=== PATIENT | female | born 1950 | race Caucasian/White ===

== ENCOUNTER → 2019-03-15 | Outpatient (CLI) | payer BC, MEDICARE ==
--- NOTE | 2019-03-15 13:55 | RAD ---
DATE: 03/15/2019. EXAM: DIGITAL DIAGNOSTIC RT, US GUID NDL PLACE/ASPI/BX. HISTORY: Right breast mass. Biopsy is requested. COMPARISON: . FINDINGS: Breast Density: SCATTERED The breast parenchyma shows scattered fibroglandular densities. Breast parenchyma level B.. The procedure along with its risks and benefits were explained to the patient. She agreed to proceed. A timeout procedure was performed. Sonographic evaluation of the right breast redemonstrates a complex cystic lesion at the 10:00 position 4 cm from the nipple. Images of the right axilla reveal no suspicious lymph nodes. The overlying skin was sterilely prepped and infiltrated with 1% lidocaine for local anesthesia. Under ultrasound guidance, 4 14-gauge core needle specimens were obtained through the lesion. This produced dark green oily material consistent with cyst contents, and small fragments of tissue. The lesion disappeared after biopsy. The specimens were submitted in formalin. A postbiopsy clip was placed under ultrasound guidance. Instrumentation was withdrawn and a sterile dressing placed. There were no immediate complications. Digital mammographic images were obtained on the right in CC and MLO projections and interpreted in combination on a dedicated workstation. These demonstrate the postbiopsy clip in correspondence with the targeted lesion. IMPRESSION: 1. Successful ultrasound-guided biopsy of a right breast mass at the 10:00 position 4 cm from the nipple.
--- NOTE | 2019-03-18 14:06 | PATHOLOGY ---
[facility] Accession Number: [id number] . 01 Material submitted: . breast - RIGHT BREAST MASS,10:00, 4CMFN. Modifiers: right, 10:00 . 01 Clinical history: . Right breast mass 1.3 cm . 02 Diagnosis: Breast mass, right, 10:00, 4 cm from nipple, core needle biopsy: - Cystic apocrine metaplasia. - Tiny microcalcification present focally. - No evidence of atypia or malignancy. (MLK/db; 03/16/2019) LBQ 03/16/2019 1243 Local . 02 Comment: This case has also been reviewed by Dr. Saw Marie who agrees with the diagnosis. (SKM:kapil; 03/16/2019) . 02 Electronically signed: . Wisam Joe MD, Pathologist NPI- [id number] . 01 Gross description: . Received in formalin labeled "Wiehe, [place], right breast," and additionally labeled on the requisition as "10:00, 4 cm FN," are multiple fragments of needle cores of yellow-mitchell fibrofatty tissue measuring approximately 0.7 x 0.5 x 0.2 cm in aggregate dimensions. The specimen is submitted in its entirety in cassettes A1-A3. The cold ischemic time is unknown. The formalin fixation time is greater than 6 hours and less than 72 hours. (TSD; 03/15/2019) TOB/TOB 03/15/2019 1944 Local . 02 Pathologist provided ICD-10: N60.81 . 02 CPT . 710305 Specimen Comment: A courtesy copy of this report has been sent to [phone], [phone] Specimen Comment: [id number] Specimen Comment: Report sent to / MONY Performed at: 01 [facility] [address], [place], [place] [id number] MD Chris Tarango MD Phone: [phone] Performed at: 02 [facility] [address], [place] [id number] MD Tres Hernandes MD Phone: [phone]
== END | disposition home or self-care (01) ==
LOC: US 08:41
PROVIDERS: ATTEND Nurse Practitioner Women's Health
DX: R92.8 Other abnormal and inconclusive findings on diagnostic imaging of breast (principal); N64.89 Other specified disorders of breast
CPT/HCPCS: 19083; 77065; 88305; C1713; 76942

== ENCOUNTER 2019-04-26 05:29 | Inpatient (IN) | payer BC, MEDICARE ==
[~2019-04-26] VITALS: Ht 160 cm; Wt 57.0 kg
--- NOTE | 2019-04-26 05:48 | PHYS DOC ---
Past Medical History Smoking: Cigarettes (BREANNE SALES MD) Adult General Chief Complaint Chief Complaint: NEURO SYMPTOMS/DEFICITS HPI HPI Patient is a 68 year old female with history of hypertension who presents with complaint to of left leg numbness. She states she went to bed around 2200 last night without problem and woke up at 4:30 this morning to go to the bathroom and had numbness and weakness of left arm and left leg and problem with walking because of weakness of left leg. Patient denies speech problem or confusion or facial droop. (LUDY BIRMINGHAM MD) Review of Systems Review of Systems Constitutional: Denies fever or chills [] Eyes: Denies change in visual acuity, redness, or eye pain [] HENT: Denies nasal congestion or sore throat [] Respiratory: Denies cough or shortness of breath [] Cardiovascular: No additional information not addressed in HPI [] GI: Denies abdominal pain, nausea, vomiting, bloody stools or diarrhea [] : Denies dysuria or hematuria [] Musculoskeletal: Denies back pain or joint pain [] Integument: Denies rash or skin lesions [] Neurologic: Denies headache, reports focal weakness , sensory changes [] Endocrine: Denies polyuria or polydipsia [] All other systems were reviewed and found to be within normal limits, except as documented in this note. (LUDY BIRMINGHAM MD) Current Medications Current Medications Current Medications Medications (Trade) Dose Ordered Sig/Marshall Start Time Stop Time Status Last Admin Dose Admin Aspirin (Children'S Aspirin) 324 mg 1X ONCE 04/26/19 06:30 04/26/19 06:32 DC 04/26/19 06:42 324 MG Clonidine HCl (Catapres) 0.1 mg 1X ONCE 04/26/19 07:30 04/26/19 07:31 Clopidogrel Bisulfate (Plavix) 300 mg 1X ONCE 04/26/19 06:30 04/26/19 06:32 DC 04/26/19 06:41 300 MG Info (CONTRAST GIVEN -- Rx MONITORING) 1 each PRN DAILY PRN 04/26/19 06:15 04/28/19 06:14 Iohexol (Omnipaque 300 Mg/ml) 75 ml 1X ONCE 04/26/19 06:30 04/26/19 06:32 DC 04/26/19 06:56 75 ML (BREANNE SALES MD) Allergies Allergies Allergies Coded Allergies Type Severity Reaction Last Updated Verified Sulfa (Sulfonamide Antibiotics) Allergy Severe 04/26/19 Yes Penicillins Allergy Intermediate 04/26/19 Yes (BREANNE SALES MD) Physical Exam Physical Exam Constitutional: Well developed, well nourished, mild distress, non-toxic appearance. [] HENT: Normocephalic, atraumatic. Eyes: PERRLA, EOMI, conjunctiva normal, no discharge. [] Neck: Normal range of motion, no tenderness, supple, no stridor. [] Cardiovascular:Heart rate regular rhythm, no murmur [] Lungs & Thorax: Bilateral breath sounds clear to auscultation [] Abdomen: Bowel sounds normal, soft, no tenderness, no masses, no pulsatile masses. [] Skin: Warm, dry, no erythema, no rash. [] Back: No tenderness, no CVA tenderness. [] Extremities: No tenderness, no cyanosis, no clubbing, ROM intact, no edema. [] Neurologic: Alert and oriented X 3, left lower extremity weakness. Psychologic: Affect normal, judgement normal, mood normal. [] (LUDY BIRMINGHAM MD) Current Patient Data Vital Signs Vital Signs Date Time Temp Pulse Resp B/P (MAP) Pulse Ox O2 Delivery O2 Flow Rate FiO2 04/26/19 06:54 68 221/76 (124) Room Air 04/26/19 05:43 98 04/26/19 05:41 98.7 20 98.7 (BREANNE SALES MD) Lab Values Laboratory Tests Test 04/26/19 05:44 04/26/19 05:47 White Blood Count 9.7 x10^3/uL (4.0-11.0) Red Blood Count 5.26 x10^6/uL (3.50-5.40) Hemoglobin 14.8 g/dL (12.0-15.5) Hematocrit 45.3 % (36.0-47.0) Mean Corpuscular Volume 86 fL (79-100) Mean Corpuscular Hemoglobin 28 pg (25-35) Mean Corpuscular Hemoglobin Concent 33 g/dL (31-37) Red Cell Distribution Width 13.9 % (11.5-14.5) Platelet Count 361 x10^3/uL (140-400) Prothrombin Time 11.6 SEC (11.7-14.0) L Prothrombin Time INR 0.9 (0.8-1.1) Activated Partial Thromboplast Time 27 SEC (24-38) Sodium Level 142 mmol/L (136-145) Potassium Level 4.4 mmol/L (3.5-5.1) Chloride Level 106 mmol/L (98-107) Carbon Dioxide Level 27 mmol/L (21-32) Anion Gap 9 (6-14) Blood Urea Nitrogen 27 mg/dL (7-20) H Creatinine 1.1 mg/dL (0.6-1.0) H Estimated GFR (Cockcroft-Gault) 49.7 Glucose Level 109 mg/dL (70-99) H Calcium Level 9.8 mg/dL (8.5-10.1) Glucose (Fingerstick) 95 mg/dL (70-99) Laboratory Tests 04/26/19 05:44 Laboratory Tests 04/26/19 05:44 (BREANNE SALSE MD) EKG EKG [] (LUDY BIRMINGHAM MD) EKG Normal sinus rhythm a rate of 72 beats for minute, leftward axis, normal intervals. There are no acute ischemic ST/T changes. (BREANNE SALES MD) Radiology/Procedures Radiology/Procedures [] (LUDY BIRMINGHAM MD) Radiology/Procedures PROCEDURE: CT ANGIOGRAPHY HEAD AND NECK CTA head and CTA neck with contrast History: Left-sided weakness Technique: Axial helical images were obtained of the head and neck after the intravenous administration of 60 mL of Omni 300 IV contrast. Multiplanar reconstruction was performed on an independent work station including MIP imaging and 3D angiographic imaging. Comparison: none CTA head with contrast. Findings: Brain: The mitchell and white matter appears symmetrical. There is no mass effect, extra-axial fluid collections or hydrocephalus. There is no gross bleed. Distal carotid arteries: Deliverer Outside patient intercavernous portions of the internal carotid arteries with less than 50 percent stenosis. Vertebral basilar system normal Major cerebral arteries: normal Impression: no acute findings end impression CTA neck with contrast: Findings: Aortic arch and origin of great vessels: normal Common carotid arteries: Right: normal Left: normal Internal carotid arteries: Right: There is calcification at the level of bulb with less than 50 percent stenosis of the origin of the right internal carotid artery. Left: normal Vertebral basilar system normal There is patchy opacity in the apices the lungs. Impression: No significant stenosis. Patchy opacity in the apices of lungs is nonspecific and could be scar. TB is possible. End impression PROCEDURE: CT CODE STROKE HEAD WO CT Head W/O Contrast: History: Left-sided weakness and numbness Comparison: none Axial images were obtained without contrast. There is moderate diffuse atrophy. There is no mass effect, extraaxial fluid collections or hydrocephalus. There is no gross bleed. Mild, patchy periventricular and subcortical white matter hypoattenuation is seen. There is no focal loss of mitchell-white matter distinction to suggest acute ischemia, i.e. stroke. Impression: No acute findings. (BREANNE SALES MD) Course & Med Decision Making Course & Med Decision Making Pertinent Labs and Imaging studies pending. Evaluation of patient in ER showed 68-year-old female patient with history of hypertension presented complaining of left upper and lower extremity numbness and weakness since she woke up at 0420. CT head and labs is pending. Sign out given to for further evaluation and final disposition. Discussed current findings and plan with patient and family, who acknowledge understanding and agreement. (LUDY BIRMINGHAM MD) Course & Med Decision Making 6:10 AM: Patient care was assumed at 6 AM shift change. Patient awakened around 420, to use the restroom and noticed some problems with the left side of her body. She is complaining of paresthesias along the entire left side of her body, from her left face towards her left leg, including her left arm. She reports some weakness with her left leg although she is able to ambulate. She denies any pain or headache, although she states she has been having some lower right back pain since awakening this morning. She denies any vision changes or speech difficulties. Noncontrast CT of her head is negative. She states she has a history of being told that she has high blood pressure in the past, but she usually states that her blood pressure goes down when she leaves the doctor's office, and she has not been treated for hypertension only 1 physician she had recommended she be on blood pressure medication. On my assessment, the patient has an NIH stroke scale score of 2, with some mildly decreased pinprick sensation on the left side of her body relative to the right, and some very mild weakness/drift, of her left leg. There is also some decreased fluidity on [id number] and heel martinez testing on the left relative to the right but this does not represent true ataxia. A CT angiogram will be obtained. I suspect the patient has had a small ischemic stroke. She is not a TPA candidate, due to her "last known normal" time being before going to bed last night before mid night. 7:15 AM:The patient's condition remains stable. I spoke with the hospitalist, who accepted the patient to the hospital for further evaluation and treatment. Neurology tooth cutter contact wheel has been paged as well. CRITICAL CARE TIME: 45 Minutes, excluding any procedures and care of other patients. (BREANNE SALES MD) Dragon Disclaimer Dragon Disclaimer This electronic medical record was generated, in whole or in part, using a voice recognition dictation system. (LUDY BIRMINGHAM MD) Departure Departure Impression: Primary Impression: Acute ischemic stroke Disposition: ADMITTED INPATIENT Admitting Physician: HIMLibia (BREANNE SALES MD) Condition: STABLE Referrals: NO PCP (PCP) NIHSS Stroke Scale NIH Stroke Scale: NIH Stroke Scale Response (Comments) Value Level of Consciousness: 0 Alert/Responsive 0 LOC Questions: 0 Answers both correctly 0 Best Gaze: 0 Normal 0 Visual: 0 No visual loss 0 Facial Palsy: 0 Normal, symmetrical 0 Motor - Left Arm 0 No drift 0 Motor - Right Arm 0 No drift 0 Motor - Left Leg 1 Drift but can hold 1 Motor: Right Leg 0 No drift 0 Total 1 LUDY BIRMINGHAM MD Apr 26, 2019 05:48 BREANNE SALES MD Apr 26, 2019 06:18
[2019-04-26 05:51] LABS: HEMATOCRIT 45.3 % (36.0-47.0); HEMOGLOBIN 14.8 g/dL (12.0-15.5); RED BLOOD COUNT 5.26 x10^6/uL (3.50-5.40); RED CELL DISTRIBUTION WIDTH 13.9 % (11.5-14.5); WHITE BLOOD COUNT 9.7 x10^3/uL (4.0-11.0)
--- NOTE | 2019-04-26 06:02 | RAD ---
CT Head W/O Contrast: History: Left-sided weakness and numbness Comparison: none Axial images were obtained without contrast. There is moderate diffuse atrophy. There is no mass effect, extraaxial fluid collections or hydrocephalus. There is no gross bleed. Mild, patchy periventricular and subcortical white matter hypoattenuation is seen. There is no focal loss of mitchell-white matter distinction to suggest acute ischemia, i.e. stroke. Impression: No acute findings. End impression These results were called to the Emergency Department and verified by read back at the time of dictation. PQRS Compliance Statement: One or more of the following individualized dose reduction techniques were utilized for this examination: 1. Automated exposure control 2. Adjustment of the mA and/or kV according to patient size 3. Use of iterative reconstruction technique Electronically signed by: Shyam Daniel III, MD (04/26/2019 5:59 AM) [id number]
[2019-04-26 06:05] LABS: CALCIUM 9.8 mg/dL (8.5-10.1); CREATININE 1.1 mg/dL (0.6-1.0); GFR 49.7; POTASSIUM 4.4 mmol/L (3.5-5.1)
[2019-04-26 06:08] LABS: PROTHROMBIN TIME PATIENT 11.6 SEC (11.7-14.0)
[2019-04-26] MEDS ORDERED: CONTRAST GIVEN. MC PRN (06:15)
[2019-04-26] MEDS ORDERED: ASPIRIN CHEWABLE 81 MG TABLET. PO ONE (06:30)
[2019-04-26] MEDS ORDERED: IOHEXOL 300 MG/ML 100ML VIAL. IV ONE (06:30)
[2019-04-26] MEDS ORDERED: CLOPIDOGREL BISULFATE 75 MG TABLET PO ONE (06:30)
--- NOTE | 2019-04-26 07:09 | RAD ---
CTA head and CTA neck with contrast History: Left-sided weakness Technique: Axial helical images were obtained of the head and neck after the intravenous administration of 60 mL of Omni 300 IV contrast. Multiplanar reconstruction was performed on an independent work station including MIP imaging and 3D angiographic imaging. Comparison: none CTA head with contrast. Findings: Brain: The mitchell and white matter appears symmetrical. There is no mass effect, extra-axial fluid collections or hydrocephalus. There is no gross bleed. 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 Vertebral basilar system normal Major cerebral arteries: normal Impression: no acute findings end impression CTA neck with contrast: Findings: Aortic arch and origin of great vessels: normal Common carotid arteries: Right: normal Left: normal Internal carotid arteries: Right: There is calcification at the level of bulb with less than 50 percent stenosis of the origin of the right internal carotid artery. Left: normal Vertebral basilar system normal There is patchy opacity in the apices the lungs. Impression: No significant stenosis. Patchy opacity in the apices of lungs is nonspecific and could be scar. TB is possible. End impression These results were called to Dr. SALES and verified by read back at the time of dictation. PQRS Compliance Statement - Stenosis calculations for CT, MR and conventional angiography are based upon measurement of the distal ICA diameter in accordance with the NASCET methodology. Stenosis calculations for carotid ultrasound studies are derived from validated velocity criteria which are known to correlate with the NASCET methodology. PQRS Compliance Statement: One or more of the following individualized dose reduction techniques were utilized for this examination: 1. Automated exposure control 2. Adjustment of the mA and/or kV according to patient size 3. Use of iterative reconstruction technique Electronically signed by: Shyam Daniel III, MD (04/26/2019 7:06 AM) [id number]
--- NOTE | 2019-04-26 07:25 | PDOC1 ---
History and Physical Date of Admission Date of Admission DATE: 04/26/19 TIME: 07:25 Identification/Chief Complaint Chief Complaint Left sided numbness Source Source: Patient History of Present Illness History of Present Illness Ms Wang is a 68yo F w/ PMHx HTN, occasional smoker 2-3 cigarettes per day, not on meds presented complaining of left upper and lower extremity numbness and weakness since she woke up at 0420. Seen in ED at 610 At 420 she awakened to use the restroom and noticed numbness on the left side of her body. She had some weakness with her left leg as well. She denies any pain or headache, although she states she has been having some lower right back pain recently. She notes she had a chiropractic adjustment for her neck and back last week. She denies any vision changes or speech difficulties and does not note a facial droop. Noncontrast CT of her head is negative. She has previously tried taking aspirin, states it "tears up" her stomach. NIH stroke scale score of 2, with some mildly decreased pinprick sensation on the left side of her body and asymmetric weakness in left leg. In ED noted outside the tPA window based on last known normal being prior to falling asleep on 04/25/2019. CT angiography negative for intracranial large vessel thrombosis. Admitted for further treatment. Past Medical History Cardiovascular: HTN Pulmonary: No pertinent hx GI: No pertinent hx Heme/Onc: No pertinent hx Hepatobiliary: No pertinent hx Psych: No pertinent hx Musculoskeletal: low back pain Rheumatologic: No pertinent hx Infectious disease: No pertinent hx ENT: No pertinent hx Renal/: No pertinent hx Endocrine: No pertinent hx Dermatology: No pertinent hx Past Surgical History Past Surgical History: No pertinent history Family History Family History: Coronary Artery Disease, High Cholestrol, Hypertension Family History: Parent (Mother - multiple issues, cardiac, HTN) Social History Smoke: <1 pack per day (2-3 cigs per day) ALCOHOL: occassional (2 beers daily) Drugs: None Current Problem List Problem List Problems Medical Problems: (1) Acute focal neurological deficit Status: Acute Current Medications Current Medications Current Medications Aspirin (Children'S Aspirin) 324 mg 1X ONCE PO Last administered on 04/26/19at 06:42; Start 04/26/19 at 06:30; Stop 04/26/19 at 06:32; Status DC Clopidogrel Bisulfate (Plavix) 300 mg 1X ONCE PO Last administered on 04/26/19at 06:41; Start 04/26/19 at 06:30; Stop 04/26/19 at 06:32; Status DC Iohexol (Omnipaque 300 Mg/ml) 75 ml 1X ONCE IV Last administered on 04/26/19at 06:56; Start 04/26/19 at 06:30; Stop 04/26/19 at 06:32; Status DC Info (CONTRAST GIVEN -- Rx MONITORING) 1 each PRN DAILY PRN MC SEE COMMENTS; Start 04/26/19 at 06:15; Stop 04/28/19 at 06:14 Clonidine HCl (Catapres) 0.1 mg 1X ONCE PO ; Start 04/26/19 at 07:30; Stop 04/26/19 at 07:31 Allergies Allergies: Coded Allergies: Sulfa (Sulfonamide Antibiotics) (Verified Allergy, Severe, 04/26/19) Penicillins (Verified Allergy, Intermediate, 04/26/19) ROS General: No: Chills, Night Sweats, Fatigue, Malaise, Appetite, Other PSYCHOLOGICAL ROS: No: Anxiety, Behavioral Disorder, Concentration difficultie, Decreased libido, Depression, Disorientation, Hallucinations, Hostility, Irritablity, Memory difficulties, Mood Swings, Obsessive thoughts, Physical abuse, Sexual abuse, Sleep disturbances, Suicidal ideation, Other Eyes: No Blurry vision, No Decreased vision, No Double vision, No Dry eyes, No Excessive tearing, No Eye Pain, No Itchy Eyes, No Loss of vision, No Photophobia, No Scotomata, No Uses contacts, No Uses glasses, No Other HEENT: No: Heacaches, Visual Changes, Hearing change, Nasal congestion, Nasal discharge, Oral lesions, Sinus pain, Sore Throat, Epistaxis, Sneezing, Snoring, Tinnitus, Vertigo, Vocal changes, Other ALLERGY AND IMMUNOLOGY: No: Hives, Insect Bite Sensitivity, Itchy/Watery Eyes, Nasal Congestion, Post Nasal Drip, Seasonal Allergies, Other ENDOCRINE: No: Breast Changes, Galactorrhea, Hair Pattern Changes, Hot Flashes, Malaise/lethargy, Mood Swings, Palpitations, Polydipsia/polyuria, Skin Changes, Temperature Intolerance, Unexpected Weight Changes, Other Breast: No New/Changing Breast Lumps, No Nipple changes, No Nipple discharge, No Other Respiratory: No: Cough, Hemoptysis, Orthopnea, Pleuritic Pain, Shortness of breath, SOB with excertion, Sputum Changes, Stridor, Tachypnea, Wheezing, Other Cardiovascular: No Chest Pain, No Palpitations, No Orthopnea, No Paroxysmal Noc. Dyspnea, No Edema, No Lt Headedness, No Other Gastrointestinal: No Nausea, No Vomiting, No Abdominal Pain, No Diarrhea, No Constipation, No Melena, No Hematochezia, No Other Genitourinary: No Dysuria, No Frequency, No Incontinence, No Hematuria, No Retention, No Discharge, No Urgency, No Pain, No Flank Pain, No Other, No , No , No , No , No , No , No Musculoskeletal: Yes Gait Disturbance; No Joint Pain, No Joint Stiffness, No Joint Swelling, No Muscle Pain, No Muscular Weakness, No Pain In:, No Swelling In:, No Other Neurological: Yes Numbness/Tingling; No Behavorial Changes, No Bowel/Bladder ControlChng, No Confusion, No Dizziness, No Gait Disturbance, No Headaches, No Impaired Coord/balance, No Memory Loss, No Seizures, No Speech Problems, No Tremors, No Visual Changes, No Weakness, No Other Skin: No Dry Skin, No Eczema, No Hair Changes, No Lumps, No Mole Changes, No Mottling, No Nail Changes, No Pruritus, No Rash, No Skin Lesion Changes, No Other, No Acne Physical Exam General: Alert, Oriented X3, Cooperative, No acute distress HEENT: Atraumatic, PERRLA, EOMI, Mucous membr. moist/pink Lungs: Clear to auscultation, Normal air movement Heart: S1S2, RRR, no thrills, no rubs, no gallops, no murmurs Abdomen: Normal bowel sounds, Soft, No tenderness, No hepatosplenomegaly, No masses Rectal Exam: not examined Extremities: No clubbing, No cyanosis, No edema, Normal pulses, No tenderness/swelling Skin: No rashes, No breakdown, No significant lesion Neuro: Normal gait, Normal speech, Strength at 5/5 X4 ext, Normal tone, Sensation intact, Cranial nerves 3-12 NL, Reflexes 2+ Psych/Mental Status: Mental status NL, Mood NL Vitals Vitals Vital Signs Date Time Temp Pulse Resp B/P (MAP) Pulse Ox O2 Delivery O2 Flow Rate FiO2 04/26/19 06:54 68 221/76 (124) Room Air 04/26/19 05:43 98 04/26/19 05:41 98.7 20 98.7 Labs Labs Laboratory Tests Test 04/26/19 05:44 04/26/19 05:47 White Blood Count 9.7 x10^3/uL (4.0-11.0) Red Blood Count 5.26 x10^6/uL (3.50-5.40) Hemoglobin 14.8 g/dL (12.0-15.5) Hematocrit 45.3 % (36.0-47.0) Mean Corpuscular Volume 86 fL (79-100) Mean Corpuscular Hemoglobin 28 pg (25-35) Mean Corpuscular Hemoglobin Concent 33 g/dL (31-37) Red Cell Distribution Width 13.9 % (11.5-14.5) Platelet Count 361 x10^3/uL (140-400) Prothrombin Time 11.6 SEC (11.7-14.0) Prothromb Time International Ratio 0.9 (0.8-1.1) Activated Partial Thromboplast Time 27 SEC (24-38) Sodium Level 142 mmol/L (136-145) Potassium Level 4.4 mmol/L (3.5-5.1) Chloride Level 106 mmol/L (98-107) Carbon Dioxide Level 27 mmol/L (21-32) Anion Gap 9 (6-14) Blood Urea Nitrogen 27 mg/dL (7-20) Creatinine 1.1 mg/dL (0.6-1.0) Estimated GFR (Cockcroft-Gault) 49.7 Glucose Level 109 mg/dL (70-99) Calcium Level 9.8 mg/dL (8.5-10.1) Glucose (Fingerstick) 95 mg/dL (70-99) Laboratory Tests Test 04/26/19 05:44 04/26/19 05:47 White Blood Count 9.7 x10^3/uL (4.0-11.0) Red Blood Count 5.26 x10^6/uL (3.50-5.40) Hemoglobin 14.8 g/dL (12.0-15.5) Hematocrit 45.3 % (36.0-47.0) Mean Corpuscular Volume 86 fL (79-100) Mean Corpuscular Hemoglobin 28 pg (25-35) Mean Corpuscular Hemoglobin Concent 33 g/dL (31-37) Red Cell Distribution Width 13.9 % (11.5-14.5) Platelet Count 361 x10^3/uL (140-400) Prothrombin Time 11.6 SEC (11.7-14.0) Prothromb Time International Ratio 0.9 (0.8-1.1) Activated Partial Thromboplast Time 27 SEC (24-38) Sodium Level 142 mmol/L (136-145) Potassium Level 4.4 mmol/L (3.5-5.1) Chloride Level 106 mmol/L (98-107) Carbon Dioxide Level 27 mmol/L (21-32) Anion Gap 9 (6-14) Blood Urea Nitrogen 27 mg/dL (7-20) Creatinine 1.1 mg/dL (0.6-1.0) Estimated GFR (Cockcroft-Gault) 49.7 Glucose Level 109 mg/dL (70-99) Calcium Level 9.8 mg/dL (8.5-10.1) Glucose (Fingerstick) 95 mg/dL (70-99) Images Images CTA head and CTA neck with contrast Brain: The mitchell and white matter appears symmetrical. There is no mass effect, extra-axial fluid collections or hydrocephalus. There is no gross bleed. Distal carotid arteries: Senior Market Intelligence Consultant patient intercavernous portions of the internal carotid arteries with less than 50 percent stenosis. Vertebral basilar system normal Major cerebral arteries: normal Impression: no acute findings CTA neck with contrast: Aortic arch and origin of great vessels: normal Common carotid arteries: Right: normal Left: normal Internal carotid arteries: Right: There is calcification at the level of bulb with less than 50 percent stenosis of the origin of the right internal carotid artery. Left: normal Vertebral basilar system normal There is patchy opacity in the apices the lungs. Impression: No significant stenosis. Patchy opacity in the apices of lungs is nonspecific and could be scar. TB is possible. End impression PROCEDURE: CT CODE STROKE HEAD WO CT Head W/O Contrast: History: Left-sided weakness and numbness Comparison: none Axial images were obtained without contrast. There is moderate diffuse atrophy. There is no mass effect, extraaxial fluid collections or hydrocephalus. There is no gross bleed. Mild, patchy periventricular and subcortical white matter hypoattenuation is seen. There is no focal loss of mitchell-white matter distinction to suggest acute ischemia, i.e. stroke. Impression: No acute findings. VTE Prophylaxis Ordered VTE Prophylaxis Devices: Yes VTE Pharmacological Prophylaxi: No Assessment/Plan Assessment/Plan A/P: Left sided weakness and left sided numbness - consistent with CVA symptoms, 2/2 hypertensive encephalopathy. Symptoms resolved. Neurology consulted Elevated blood pressure not on antihypertensives - advised she should consider a mbulatory blood pressure monitoring Smoker - Counseled regarding smoking cessation Dyspepsia - aspirin enteric coated preferred. Counseled regarding reducing alcohol intake and smoking to help with this. FEN - General diet PPX - ambulatory FULL CODE Dispo - inpatient for CVA symptoms. will get MRI, echo, telemetry, PT/OT/FRONT SIGHT ATTACHER SONI ADAMES MD Apr 26, 2019 07:25
[2019-04-26] MEDS ORDERED: cloNIDine HCL 0.1 MG TABLET PO ONE (07:30)
--- NOTE | 2019-04-26 07:37 | RAD ---
EXAM: CHEST 1 VIEW History: Abnormal CT findings COMPARISON: None available. TECHNIQUE: Single portable radiograph of the chest FINDINGS: The cardiac silhouette is unremarkable. Faint opacities in the bilateral apical lungs.The costophrenic sulci are clear and well demarcated. IMPRESSION: Faint opacities identified in the bilateral apical lungs could be atelectasis or scarring changes. Electronically signed by: Benny Marte MD (04/26/2019 7:34 AM) [facility] [place]
--- NOTE | 2019-04-26 08:59 | EKG ---
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
[2019-04-26] MEDS ORDERED: ACETAMINOPHEN 325 MG TABLET. PO PRN (14:00)
[2019-04-26] MEDS ORDERED: ACETAMINOPHEN 650 MG SUPP.RECT. PR PRN (14:00)
[2019-04-26] MEDS ORDERED: ASPIRIN RECTAL 300 MG SUPP. PR PRN (14:00)
[2019-04-26 14:09] VITALS: BP 123/100
[2019-04-26] MEDS: ASPIRIN ENTERIC COATED 325 MG TABLET.DR. PO SCH (15:00)
--- NOTE | 2019-04-26 16:05 | CARD ---
MR#: [id number] Date of Study: 04/26/2019 Ordering Physician: MYRNA DAVE, Referring Physician: MYRNA DAVE, Tech: Courtney Maya APPROVED REPORT EXAM: Two-dimensional and M-mode echocardiogram with Doppler and color Doppler. Other Information Quality : FairHR: 69bpm INDICATION CVA/TIA RISK FACTORS Hypertension Smoking 2D DIMENSIONS RVDd2.5 (2.9-3.5cm)Left Atrium(2D)2.8 (1.6-4.0cm) IVSd1.2 (0.7-1.1cm)Aortic Root(2D)2.5 (2.0-3.7cm) LVDd3.9 (3.9-5.9cm)LVOT Diameter1.7 (1.8-2.4cm) PWd1.0 (0.7-1.1cm)LVDs1.9 (2.5-4.0cm) FS (%) 51.4 %SV56.4 ml Aortic Valve AoV Peak John.146.5cm/sAoV VTI29.7cm AO Peak GR.8.6mmHgLVOT Peak John.103.6cm/s LVOT VTI 22.57cmAO Mean GR.5mmHg GOVIND (VMAX)1.44pq1MFG (VTI)1.79cm2 Mitral Valve MV E Egbqdcqj76.4cm/sMV DECEL [id number] MV A Nnsoudng62.3cm/sMV E Mean Gr.1mmHg MV [id number]/A Ratio0.8 MVA (PHT)2.32cm2 TDI E/Lateral E'11.2E/Medial E'8.8 Pulmonary Valve PV Peak Jjvzxvtk07.0cm/sPV Peak Grad.3mmHg Tricuspid Valve TR P. Diqegxak914eq/sTR Peak Gr.25mmHg Pulmonary Vein S1 Wqsdiubf79.9cm/sD2 Usdowvop51.2cm/s PVa [id number] LEFT VENTRICLE The left ventricle is normal size. There is borderline concentric left ventricular hypertrophy. The l eft ventricular systolic function is normal and the ejection fraction is within normal range. The Eje ction Fraction is 60-65%. There is normal LV segmental wall motion. Transmitral Doppler flow pattern is Grade I-abnormal relaxation pattern. RIGHT VENTRICLE The right ventricle is normal size. There is normal right ventricular wall thickness. The right ventr icular systolic function is normal. ATRIA The left atrium size is normal. The right atrium size is normal. The interatrial septum is intact wit h no evidence for an atrial septal defect or patent foramen ovale as noted on 2-D or Doppler imaging. AORTIC VALVE The aortic valve is normal in structure and function. Doppler and Color Flow revealed trace aortic re gurgitation. There is no significant aortic valvular stenosis. MITRAL VALVE The mitral valve is normal in structure and function. There is no evidence of mitral valve prolapse. There is no mitral valve stenosis. Doppler and Color Flow revealed no mitral valve regurgitation note d. TRICUSPID VALVE The tricuspid valve is not well visualized. Doppler and Color Flow revealed no tricuspid valve regurg itation noted. There is no tricuspid valve stenosis. PULMONIC VALVE The pulmonic valve is not well visualized. Doppler and Color Flow revealed no pulmonic valvular regur gitation. GREAT VESSELS The aortic root is normal in size. The IVC is normal in size and collapses >50% with inspiration. PERICARDIAL EFFUSION There is no evidence of significant pericardial effusion. Critical Notification Critical Value: No <Conclusion> The left ventricle is normal size. The left ventricular systolic function is normal and the ejection fraction is within normal range. The Ejection Fraction is 60-65%. There is borderline concentric left ventricular hypertrophy. Doppler and Color Flow revealed trace aortic regurgitation. There is no significant aortic valvular stenosis. Doppler and Color Flow revealed no mitral valve regurgitation noted. Doppler and Color Flow revealed no tricuspid valve regurgitation noted. Signed by : Rick Koroma MD Electronically Approved : 04/26/2019 16:05:05
--- NOTE | 2019-04-26 16:37 | RAD ---
BRAIN W/O CONTRAST History: CVA Technique: Multiplanar, multi sequential MR imaging was performed of the brain without contrast. Comparison: Head CT April 26, 2019 Findings: No acute infarct. No intracranial hemorrhage. No mass effect. No hydrocephalus. Chronic right basal ganglia lacunar infarct. Foci of T2/FLAIR hyperintensity within the hemispheric white matter, most often due to chronic microvascular ischemia. Imaged orbits are unremarkable. Imaged paranasal sinuses and mastoid air cells are clear. Impression: 1. No acute intracranial abnormality. 2. Chronic right basal ganglia lacunar infarct. 3. Moderate sequela of chronic microvascular ischemia. Electronically signed by: Drake Pepper DO (04/26/2019 4:34 PM) [id number]
--- NOTE | 2019-04-26 16:50 | PDOC2 ---
NEUROLOGY CONSULT Date of Admission Date of Admission DATE: 04/26/19 TIME: 16:49 Reason for Consult Reason for Consult: Stroke symptoms Referring Physician Referring Physician: Dr. Saleh Source Source: Caregiver, Chart review, Patient History of Present Illness History of Present Illness The patient is a 68-year-old right-handed female who woke up this morning with left-sided weakness and numbness. Last known normal was 10 PM, she was therefore deemed to be a poor candidate for alteplase. Her blood pressure was markedly elevated and indeed her symptoms have resolved with its treatment. She has not seen a doctor in several years. There is no headache, diplopia, dysphagia, dysarthria, cognitive change, or any prior history of stroke, seizure, or head injury. Past Medical History Cardiovascular: HTN GI: GERD (markedly worse with aspirin) Past Surgical History Past Surgical History: No pertinent history Family History Family History: No pertinent hx (mother of multiple causes, father of unknown cause) Social History Social History , 2 cigarettes a day, 2 beers a day Current Medications Current Medications Current Medications Aspirin (Children'S Aspirin) 324 mg 1X ONCE PO Last administered on 04/26/19at 06:42; Start 04/26/19 at 06:30; Stop 04/26/19 at 06:32; Status DC Clopidogrel Bisulfate (Plavix) 300 mg 1X ONCE PO Last administered on 04/26/19at 06:41; Start 04/26/19 at 06:30; Stop 04/26/19 at 06:32; Status DC Iohexol (Omnipaque 300 Mg/ml) 75 ml 1X ONCE IV Last administered on 04/26/19at 06:56; Start 04/26/19 at 06:30; Stop 04/26/19 at 06:32; Status DC Info (CONTRAST GIVEN -- Rx MONITORING) 1 each PRN DAILY PRN MC SEE COMMENTS; Start 04/26/19 at 06:15; Stop 04/28/19 at 06:14 Clonidine HCl (Catapres) 0.1 mg 1X ONCE PO Last administered on 04/26/19at 08:03; Start 04/26/19 at 07:30; Stop 04/26/19 at 07:31; Status DC Acetaminophen (Tylenol) 650 mg PRN Q6HRS PRN PO TEMP > 100.4F; Start 04/26/19 at 14:00 Acetaminophen (Tylenol Supp) [address] TEMP > 100.4F; Start 04/26/19 at 14:00 Aspirin (Ecotrin) 325 mg DAILYWBKFT PO ; Start 04/26/19 at 15:00 Aspirin (Aspirin Rectal Supp) [address] IF UNABLE TO TAKE PO; Start 04/26/19 at 14:00 Atorvastatin Calcium (Lipitor) 40 mg QHS PO ; Start 04/26/19 at 21:00 Allergies Allergies: Coded Allergies: Sulfa (Sulfonamide Antibiotics) (Verified Allergy, Severe, 04/26/19) Penicillins (Verified Allergy, Intermediate, 04/26/19) ROS Review of System Negative for fever, chills, weight loss, shortness of breath, chest pain, hematochezia, melena, and dysuria. Positive for reflux symptoms. Full 14-point review of systems is negative. Physical Exam Physical Examination General: Well-developed, well-nourished white female in no acute distress HEENT: Normocephalic andatraumatic. Temporal arteriespulsatile and nontender. Neck: Supple without bruit, no meningismus Musculoskeletal: Stability:see neurologic. Gait exam:see neurologic. Tone:see ne urologic.Strength:see neurologic. Neurological: Mental Status:intact, orientation, memory, attention span/concentration, asim guage, fund of knowledge normal. Cranial Nerves:Pupils equal and reactive to light, extraocular movements areintact, visual aragon are full to confrontation. Facial sensation is normal. There is no facial asymmetry. Vestibulo-ocular reflex is intact. Palate elevates and tongue protrudes in midline. All other cranial related problems are negative except as mentioned before.Reflexes:2+ and symmetric with flexor plantar responses. Motor:5/5 strength with normal tone and bulk. Coordination:Finger-nose finger and [id number] testing are normal. Rapid alternating movements and fine finger movements are intact. Gait:Normal, including tandem. Sensory:Normal pinprick, vibration, light touch, proprioception. Vitals VITALS Vital Signs Date Time Temp Pulse Resp B/P (MAP) Pulse Ox O2 Delivery O2 Flow Rate FiO2 04/26/19 14:25 Room Air 04/26/19 14:09 97.8 66 18 123/100 (108) 98 97.8 Labs Labs Laboratory Tests Test 04/26/19 05:44 04/26/19 05:47 White Blood Count 9.7 x10^3/uL (4.0-11.0) Red Blood Count 5.26 x10^6/uL (3.50-5.40) Hemoglobin 14.8 g/dL (12.0-15.5) Hematocrit 45.3 % (36.0-47.0) Mean Corpuscular Volume 86 fL (79-100) Mean Corpuscular Hemoglobin 28 pg (25-35) Mean Corpuscular Hemoglobin Concent 33 g/dL (31-37) Red Cell Distribution Width 13.9 % (11.5-14.5) Platelet Count 361 x10^3/uL (140-400) Prothrombin Time 11.6 SEC (11.7-14.0) Prothromb Time International Ratio 0.9 (0.8-1.1) Activated Partial Thromboplast Time 27 SEC (24-38) Sodium Level 142 mmol/L (136-145) Potassium Level 4.4 mmol/L (3.5-5.1) Chloride Level 106 mmol/L (98-107) Carbon Dioxide Level 27 mmol/L (21-32) Anion Gap 9 (6-14) Blood Urea Nitrogen 27 mg/dL (7-20) Creatinine 1.1 mg/dL (0.6-1.0) Estimated GFR (Cockcroft-Gault) 49.7 Glucose Level 109 mg/dL (70-99) Calcium Level 9.8 mg/dL (8.5-10.1) Glucose (Fingerstick) 95 mg/dL (70-99) Laboratory Tests Test 04/26/19 05:44 04/26/19 05:47 White Blood Count 9.7 x10^3/uL (4.0-11.0) Red Blood Count 5.26 x10^6/uL (3.50-5.40) Hemoglobin 14.8 g/dL (12.0-15.5) Hematocrit 45.3 % (36.0-47.0) Mean Corpuscular Volume 86 fL (79-100) Mean Corpuscular Hemoglobin 28 pg (25-35) Mean Corpuscular Hemoglobin Concent 33 g/dL (31-37) Red Cell Distribution Width 13.9 % (11.5-14.5) Platelet Count 361 x10^3/uL (140-400) Prothrombin Time 11.6 SEC (11.7-14.0) Prothromb Time International Ratio 0.9 (0.8-1.1) Activated Partial Thromboplast Time 27 SEC (24-38) Sodium Level 142 mmol/L (136-145) Potassium Level 4.4 mmol/L (3.5-5.1) Chloride Level 106 mmol/L (98-107) Carbon Dioxide Level 27 mmol/L (21-32) Anion Gap 9 (6-14) Blood Urea Nitrogen 27 mg/dL (7-20) Creatinine 1.1 mg/dL (0.6-1.0) Estimated GFR (Cockcroft-Gault) 49.7 Glucose Level 109 mg/dL (70-99) Calcium Level 9.8 mg/dL (8.5-10.1) Glucose (Fingerstick) 95 mg/dL (70-99) Images Images CT Head W/O Contrast: History: Left-sided weakness and numbness Comparison: none Axial images were obtained without contrast. There is moderate diffuse atrophy. There is no mass effect, extraaxial fluid collections or hydrocephalus. There is no gross bleed. Mild, patchy periventricular and subcortical white matter hypoattenuation is seen. There is no focal loss of mitchell-white matter distinction to suggest acute ischemia, i.e. stroke. Impression: No acute findings. End impression These results were called to the Emergency Department and verified by read back at the time of dictation. CTA head and CTA neck with contrast History: Left-sided weakness Technique: Axial helical images were obtained of the head and neck after the intravenous administration of 60 mL of Omni 300 IV contrast. Multiplanar reconstruction was performed on an independent work station including MIP imaging and 3D angiographic imaging. Comparison: none CTA head with contrast. Findings: Brain: The mitchell and white matter appears symmetrical. There is no mass effect, extra-axial fluid collections or hydrocephalus. There is no gross bleed. 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 Vertebral basilar system normal Major cerebral arteries: normal Impression: no acute findings end impression CTA neck with contrast: Findings: Aortic arch and origin of great vessels: normal Common carotid arteries: Right: normal Left: normal Internal carotid arteries: Right: There is calcification at the level of bulb with less than 50 percent stenosis of the origin of the right internal carotid artery. Left: normal Vertebral basilar system normal There is patchy opacity in the apices the lungs. Impression: No significant stenosis. Patchy opacity in the apices of lungs is nonspecific and could be scar. TB is possible. End impression BRAIN W/O CONTRAST History: CVA Technique: Multiplanar, multi sequential MR imaging was performed of the brain without contrast. Comparison: Head CT April 26, 2019 Findings: No acute infarct. No intracranial hemorrhage. No mass effect. No hydrocephalus. Chronic right basal ganglia lacunar infarct. Foci of T2/FLAIR hyperintensity within the hemispheric white matter, most often due to chronic microvascular ischemia. Imaged orbits are unremarkable. Imaged paranasal sinuses and mastoid air cells are clear. Impression: 1. No acute intracranial abnormality. 2. Chronic right basal ganglia lacunar infarct. 3. Moderate sequela of chronic microvascular ischemia. Echocardiogram: LEFT VENTRICLE The left ventricle is normal size. There is borderline concentric left ventricular hypertrophy. The left ventricular systolic function is normal and the ejection fraction is within normal range. The Ejection Fraction is 60-65%. There is normal LV segmental wall motion. Transmitral Doppler flow pattern is Grade I-abnormal relaxation pattern. RIGHT VENTRICLE The right ventricle is normal size. There is normal right ventricular wall thickness. The right ventricular systolic function is normal. ATRIA The left atrium size is normal. The right atrium size is normal. The interatrial septum is intact with no evidence for an atrial septal defect or patent foramen ovale as noted on 2-D or Doppler imaging. AORTIC VALVE The aortic valve is normal in structure and function. Doppler and Color Flow rev ealed trace aortic regurgitation. There is no significant aortic valvular stenosis. MITRAL VALVE The mitral valve is normal in structure and function. There is no evidence of mitral valve prolapse. There is no mitral valve stenosis. Doppler and Color Flow revealed no mitral valve regurgitation noted. TRICUSPID VALVE The tricuspid valve is not well visualized. Doppler and Color Flow revealed no tricuspid valve regurgitation noted. There is no tricuspid valve stenosis. PULMONIC VALVE The pulmonic valve is not well visualized. Doppler and Color Flow revealed no pulmonic valvular regurgitation. GREAT VESSELS The aortic root is normal in size. The IVC is normal in size and collapses >50% with inspiration. PERICARDIAL EFFUSION There is no evidence of significant pericardial effusion. Critical Notification Critical Value: No <Conclusion> The left ventricle is normal size. The left ventricular systolic function is normal and the ejection fraction is within normal range. The Ejection Fraction is 60-65%. There is borderline concentric left ventricular hypertrophy. Doppler and Color Flow revealed trace aortic regurgitation. There is no significant aortic valvular stenosis. Doppler and Color Flow revealed no mitral valve regurgitation noted. Doppler and Color Flow revealed no tricuspid valve regurgitation noted. Assessment/Plan Assessment/Plan Impression: Stroke symptoms, due to hypertensive encephalopathy, workup already done and is negative. Symptoms have resolved. Certainly I agree she was not a candidate for alteplase. Recommendations: Observe one more night Blood pressure control Risks outweigh benefits of aspirin given her dyspepsia Counseled regarding smoking cessation and reducing alcohol intake. She needs to follow-up with her primary physician, she plans to see her 's. Also discussed with Dr. Saleh Thank you for letting me help with the patient's care. MYRNA DAVE MD Apr 26, 2019 16:50
[2019-04-26 19:56] VITALS: BP 167/86
[2019-04-26] MEDS ORDERED: ATORVASTATIN CALCIUM 40 MG TABLET. PO SCH (21:00)
[2019-04-26 23:58] VITALS: BP 142/67
[2019-04-27 03:14] VITALS: BP 157/79
[2019-04-27 05:39] LABS: CHOLESTEROL/HDL RATIO 2.7
[2019-04-27 07:15] VITALS: BP 181/87
--- NOTE | 2019-04-27 07:36 | PDOC ---
PROGRESS NOTES Chief Complaint Chief Complaint A/P: Left sided weakness and left sided numbness - consistent with CVA symptoms, 2/ hypertensive encephalopathy. Symptoms resolved. Neurology consulted Elevated blood pressure not on antihypertensives - advised she should consider ambulatory blood pressure monitoring Smoker - Counseled regarding smoking cessation Dyspepsia - aspirin enteric coated preferred. Counseled regarding reducing alcohol intake and smoking to help with this. FEN - General diet PPX - ambulatory FULL CODE Dispo - inpatient for CVA symptoms. 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 Seen in ED at 610 At 420 she awakened to use the restroom and noticed numbness on the left side of her body. She had some weakness with her left leg as well. She denies any pain or headache, although she states she has been having some lower right back pain recently. She notes she had a chiropractic adjustment for her neck and back last week. She denies any vision changes or speech difficulties and does not note a facial droop. Noncontrast CT of her head is negative. She has previously tried taking aspirin, states it "tears up" her stomach. NIH stroke scale score of 2, with some mildly decreased pinprick sensation on the left side of her body and asymmetric weakness in left leg. In ED noted outside the tPA window based on last known normal being prior to falling asleep on 04/25/2019. CT angiography negative for intracranial large vessel thrombosis. Admitted for further treatment. Vitals Vitals Vital Signs Date Time Temp Pulse Resp B/P (MAP) Pulse Ox O2 Delivery O2 Flow Rate FiO2 04/27/19 03:14 98.2 71 18 157/79 (105) 94 Room Air 98.2 Physical Exam General: Alert, Oriented X3, Cooperative, No acute distress Abdomen: Normal bowel sounds, Soft, No tenderness, No hepatosplenomegaly, No masses Extremities: No clubbing, No cyanosis, No edema, Normal pulses, No tenderness/swelling Skin: No rashes, No breakdown, No significant lesion Labs LABS Laboratory Tests Test 04/27/19 04:30 Triglycerides Level 57 mg/dL (0-150) Cholesterol Level 210 mg/dL (0-200) LDL Cholesterol, Calculated 122 mg/dL (0-100) VLDL Cholesterol, Calculated 11 mg/dL (0-40) Non-HDL Cholesterol Calculated 133 mg/dL (0-129) HDL Cholesterol 77 mg/dL (40-60) Cholesterol/HDL Ratio 2.7 Assessment and Plan Assessmemt and Plan Problems Medical Problems: (1) Acute focal neurological deficit Status: Acute (2) Acute ischemic stroke Status: Acute Comment Review of Relevant I have reviewed the following items italia (where applicable) has been applied. Labs Laboratory Tests Test 04/26/19 05:44 04/26/19 05:47 04/27/19 04:30 White Blood Count 9.7 x10^3/uL (4.0-11.0) Red Blood Count 5.26 x10^6/uL (3.50-5.40) Hemoglobin 14.8 g/dL (12.0-15.5) Hematocrit 45.3 % (36.0-47.0) Mean Corpuscular Volume 86 fL (79-100) Mean Corpuscular Hemoglobin 28 pg (25-35) Mean Corpuscular Hemoglobin Concent 33 g/dL (31-37) Red Cell Distribution Width 13.9 % (11.5-14.5) Platelet Count 361 x10^3/uL (140-400) Prothrombin Time 11.6 SEC (11.7-14.0) Prothromb Time International Ratio 0.9 (0.8-1.1) Activated Partial Thromboplast Time 27 SEC (24-38) Sodium Level 142 mmol/L (136-145) Potassium Level 4.4 mmol/L (3.5-5.1) Chloride Level 106 mmol/L (98-107) Carbon Dioxide Level 27 mmol/L (21-32) Anion Gap 9 (6-14) Blood Urea Nitrogen 27 mg/dL (7-20) Creatinine 1.1 mg/dL (0.6-1.0) Estimated GFR (Cockcroft-Gault) 49.7 Glucose Level 109 mg/dL (70-99) Calcium Level 9.8 mg/dL (8.5-10.1) Glucose (Fingerstick) 95 mg/dL (70-99) Triglycerides Level 57 mg/dL (0-150) Cholesterol Level 210 mg/dL (0-200) LDL Cholesterol, Calculated 122 mg/dL (0-100) VLDL Cholesterol, Calculated 11 mg/dL (0-40) Non-HDL Cholesterol Calculated 133 mg/dL (0-129) HDL Cholesterol 77 mg/dL (40-60) Cholesterol/HDL Ratio 2.7 Laboratory Tests Test 04/27/19 04:30 Triglycerides Level 57 mg/dL (0-150) Cholesterol Level 210 mg/dL (0-200) LDL Cholesterol, Calculated 122 mg/dL (0-100) VLDL Cholesterol, Calculated 11 mg/dL (0-40) Non-HDL Cholesterol Calculated 133 mg/dL (0-129) HDL Cholesterol 77 mg/dL (40-60) Cholesterol/HDL Ratio 2.7 Medications Current Medications Aspirin (Children'S Aspirin) 324 mg 1X ONCE PO Last administered on 04/26/19at 06:42; Start 04/26/19 at 06:30; Stop 04/26/19 at 06:32; Status DC Clopidogrel Bisulfate (Plavix) 300 mg 1X ONCE PO Last administered on 04/26/19at 06:41; Start 04/26/19 at 06:30; Stop 04/26/19 at 06:32; Status DC Iohexol (Omnipaque 300 Mg/ml) 75 ml 1X ONCE IV Last administered on 04/26/19at 06:56; Start 04/26/19 at 06:30; Stop 04/26/19 at 06:32; Status DC Info (CONTRAST GIVEN -- Rx MONITORING) 1 each PRN DAILY PRN MC SEE COMMENTS; Start 04/26/19 at 06:15; Stop 04/28/19 at 06:14 Clonidine HCl (Catapres) 0.1 mg 1X ONCE PO Last administered on 04/26/19at 0 8:03; Start 04/26/19 at 07:30; Stop 04/26/19 at 07:31; Status DC Acetaminophen (Tylenol) 650 mg PRN Q6HRS PRN PO TEMP > 100.4F; Start 04/26/19 at 14:00 Acetaminophen (Tylenol Supp) 650 mg PRN Q4HRS PRN [place] TEMP > 100.4F; Start 04/26/19 at 14:00 Aspirin (Ecotrin) 325 mg DAILYWBKFT PO ; Start 04/26/19 at 15:00 Aspirin (Aspirin Rectal Supp) 300 mg PRN DAILY PRN [place] IF UNABLE TO TAKE PO; Start 04/26/19 at 14:00 Atorvastatin Calcium (Lipitor) 40 mg QHS PO Last administered on 04/26/19at 22:46; Start 04/26/19 at 21:00 Aspirin (Ecotrin) 325 mg DAILYWBKFT PO ; Start 04/27/19 at 08:00; Status UNV Vitals/I & O Vital Sign - Last 24 Hours 04/26/19 04/26/19 04/26/19 04/26/19 08:00 08:03 09:00 10:00 Pulse 74 76 70 63 Resp 16 16 16 B/P (MAP) 202/92 (128) 202/96 168/90 (116) 150/81 (104) Pulse Ox 94 94 94 O2 Delivery Room Air Room Air Room Air 04/26/19 04/26/19 04/26/19 04/26/19 11:00 12:16 13:16 14:09 Temp 97.8 97.8 Pulse 67 72 62 66 Resp 14 14 14 18 B/P (MAP) 151/81 (104) 186/81 (116) 162/77 (105) 123/100 (108) Pulse Ox 94 97 97 98 O2 Delivery Room Air Room Air Room Air Room Air 04/26/19 04/26/19 04/26/19 04/26/19 14:25 19:56 20:00 23:58 Temp 97.9 98.3 97.9 98.3 Pulse 69 74 Resp 18 18 B/P (MAP) 167/86 (113) 142/67 (92) Pulse Ox 95 94 O2 Delivery Room Air Room Air Room Air Room Air 04/27/19 03:14 Temp 98.2 98.2 Pulse 71 Resp 18 B/P (MAP) 157/79 (105) Pulse Ox 94 O2 Delivery Room Air Intake and Output 04/26/19 04/26/19 04/27/19 15:00 23:00 07:00 Intake Total 350 ml 350 ml Balance 350 ml 350 ml Images ECHO - The left ventricle is normal size. The left ventricular systolic function is normal and the ejection fraction is within normal range. The Ejection Fraction is 60-65%. There is borderline concentric left ventricular hypertrophy. Doppler and Color Flow revealed trace aortic regurgitation. There is no significant aortic valvular stenosis. Doppler and Color Flow revealed no mitral valve regurgitation noted. Doppler and Color Flow revealed no tricuspid valve regurgitation noted. SONI ADAMES MD Apr 27, 2019 07:36
[2019-04-27] MEDS: ASPIRIN ENTERIC COATED 325 MG TABLET.DR. PO SCH (08:00)
[2019-04-27] MEDS ORDERED: ASPIRIN ENTERIC COATED 325 MG TABLET.DR. PO SCH (08:00)
[2019-04-27] MEDS ORDERED: ATOR40TA59 PO (08:53)
[2019-04-27] MEDS ORDERED: ASPI-612 PO (08:53)
--- NOTE | 2019-04-27 10:22 | PDOC ---
PROGRESS NOTES Assessment Problems Medical Problems: (1) Acute focal neurological deficit Status: Acute (2) Acute ischemic stroke Status: Acute Stroke symptoms, due to hypertensive encephalopathy, workup already done and is negative. Symptoms have resolved. No evidence that she had a stroke Hypertension Hyperlipidemia Plan Okay for discharge Blood pressure control Patient willing to try enteric-coated aspirin 81 mg daily Needs Statin, discussed side effects Counseled again regarding smoking cessation and reducing alcohol intake. She needs to follow-up with her primary physician, she plans to see her 's. Follow-up with neurology as needed. Subjective No complaints, wants to go home Objective Vital Signs Date Time Temp Pulse Resp B/P (MAP) Pulse Ox O2 Delivery O2 Flow Rate FiO2 04/27/19 08:00 Room Air 04/27/19 07:15 97.9 74 18 181/87 (118) 95 97.9 Intake and Output 04/27/19 07:00 Intake Total 700 ml Balance 700 ml Intake Oral 700 ml PHYSICAL EXAM Alert. Oriented to time, place and person. PERRL. EOMI. CN: no focal findings. Muscle tone: normal. Muscle strength: 5/5 DTR: 2+ Plantar reflex: flexor Gait: normal. Sensory exam: no abnormal findings. No cerebellar signs elicited. Review of Relevant I have reviewed the following items italia (where applicable) has been applied. Labs Laboratory Tests Test 04/26/19 05:44 04/26/19 05:47 04/27/19 04:30 White Blood Count 9.7 x10^3/uL (4.0-11.0) Red Blood Count 5.26 x10^6/uL (3.50-5.40) Hemoglobin 14.8 g/dL (12.0-15.5) Hematocrit 45.3 % (36.0-47.0) Mean Corpuscular Volume 86 fL (79-100) Mean Corpuscular Hemoglobin 28 pg (25-35) Mean Corpuscular Hemoglobin Concent 33 g/dL (31-37) Red Cell Distribution Width 13.9 % (11.5-14.5) Platelet Count 361 x10^3/uL (140-400) Prothrombin Time 11.6 SEC (11.7-14.0) Prothromb Time International Ratio 0.9 (0.8-1.1) Activated Partial Thromboplast Time 27 SEC (24-38) Sodium Level 142 mmol/L (136-145) Potassium Level 4.4 mmol/L (3.5-5.1) Chloride Level 106 mmol/L (98-107) Carbon Dioxide Level 27 mmol/L (21-32) Anion Gap 9 (6-14) Blood Urea Nitrogen 27 mg/dL (7-20) Creatinine 1.1 mg/dL (0.6-1.0) Estimated GFR (Cockcroft-Gault) 49.7 Glucose Level 109 mg/dL (70-99) Calcium Level 9.8 mg/dL (8.5-10.1) Glucose (Fingerstick) 95 mg/dL (70-99) Triglycerides Level 57 mg/dL (0-150) Cholesterol Level 210 mg/dL (0-200) LDL Cholesterol, Calculated 122 mg/dL (0-100) VLDL Cholesterol, Calculated 11 mg/dL (0-40) Non-HDL Cholesterol Calculated 133 mg/dL (0-129) HDL Cholesterol 77 mg/dL (40-60) Cholesterol/HDL Ratio 2.7 Laboratory Tests Test 04/27/19 04:30 Triglycerides Level 57 mg/dL (0-150) Cholesterol Level 210 mg/dL (0-200) LDL Cholesterol, Calculated 122 mg/dL (0-100) VLDL Cholesterol, Calculated 11 mg/dL (0-40) Non-HDL Cholesterol Calculated 133 mg/dL (0-129) HDL Cholesterol 77 mg/dL (40-60) Cholesterol/HDL Ratio 2.7 Medications Current Medications Aspirin (Children'S Aspirin) 324 mg 1X ONCE PO Last administered on 04/26/19at 06:42; Start 04/26/19 at 06:30; Stop 04/26/19 at 06:32; Status DC Clopidogrel Bisulfate (Plavix) 300 mg 1X ONCE PO Last administered on 04/26/19at 06:41; Start 04/26/19 at 06:30; Stop 04/26/19 at 06:32; Status DC Iohexol (Omnipaque 300 Mg/ml) 75 ml 1X ONCE IV Last administered on 04/26/19at 06:56; Start 04/26/19 at 06:30; Stop 04/26/19 at 06:32; Status DC Info (CONTRAST GIVEN -- Rx MONITORING) 1 each PRN DAILY PRN MC SEE COMMENTS; Start 04/26/19 at 06:15; Stop 04/28/19 at 06:14 Clonidine HCl (Catapres) 0.1 mg 1X ONCE PO Last administered on 04/26/19at 08:03; Start 04/26/19 at 07:30; Stop 04/26/19 at 07:31; Status DC Acetaminophen (Tylenol) 650 mg PRN Q6HRS PRN PO TEMP > 100.4F; Start 04/26/19 at 14:00 Acetaminophen (Tylenol Supp) 650 mg PRN Q4HRS PRN [place] TEMP > 100.4F; Start 04/26/19 at 14:00 Aspirin (Ecotrin) 325 mg DAILYWBKFT PO ; Start 04/26/19 at 15:00 Aspirin (Aspirin Rectal Supp) 300 mg PRN DAILY PRN [place] IF UNABLE TO TAKE PO; Start 04/26/19 at 14:00 Atorvastatin Calcium (Lipitor) 40 mg QHS PO Last administered on 04/26/19at 22:46; Start 04/26/19 at 21:00 Aspirin (Ecotrin) 325 mg DAILYWBKFT PO ; Start 04/27/19 at 08:00; Status UNV Active Scripts Active Aspirin Ec (Aspirin) 81 Mg Tablet. 1 Tab PO DAILY 90 Days Atorvastatin Calcium 40 Mg Tablet 40 Mg PO QHS 30 Days Vitals/I & O Vital Sign - Last 24 Hours 04/26/19 04/26/19 04/26/19 04/26/19 11:00 12:16 13:16 14:09 Temp 97.8 97.8 Pulse 67 72 62 66 Resp 14 14 14 18 B/P (MAP) 151/81 (104) 186/81 (116) 162/77 (105) 123/100 (108) Pulse Ox 94 97 97 98 O2 Delivery Room Air Room Air Room Air Room Air 04/26/19 04/26/19 04/26/19 04/26/19 14:25 19:56 20:00 23:58 Temp 97.9 98.3 97.9 98.3 Pulse 69 74 Resp 18 18 B/P (MAP) 167/86 (113) 142/67 (92) Pulse Ox 95 94 O2 Delivery Room Air Room Air Room Air Room Air 04/27/19 04/27/19 04/27/19 03:14 07:15 08:00 Temp 98.2 97.9 98.2 97.9 Pulse 71 74 Resp 18 18 B/P (MAP) 157/79 (105) 181/87 (118) Pulse Ox 94 95 O2 Delivery Room Air Room Air Room Air Intake and Output 04/26/19 04/26/19 04/27/19 15:00 23:00 07:00 Intake Total 350 ml 350 ml Balance 350 ml 350 ml MYRNA DAVE MD Apr 27, 2019 10:22
--- NOTE | 2019-04-27 10:36 | NUR ---
Discharge Note: CAITLIN RAMIREZ [facility] Discharge instructions and discharge home medications reviewed with Patient and a copy given. All questions have been answered and understanding verbalized. The following instructions and handouts were given: stroke education packet, follow up instructions, prescriptions for aspirin and atorvastatin Discontinued lines and drains: 20 gauge right AC, 20 gauge right wrist, tips intact. patient tolerated well. Patient discharged to home with self care via .
[2019-04-28] MEDS ORDERED: ASPIRIN ENTERIC COATED 81 MG TABLET.DR. PO SCH (08:00)
== END 2019-04-27 10:30 | disposition home or self-care (01) | DRG 79 ==
LOC: ER 05:29 → ED HOLD 08:30 → 6 SOUTH 13:47
PROVIDERS: ADMIT Internal Medicine; ATTEND Internal Medicine
DX: I67.4 Hypertensive encephalopathy (principal); F17.210 Nicotine dependence, cigarettes, uncomplicated; I11.9 Hypertensive heart disease without heart failure; I65.21 Occlusion and stenosis of right carotid artery; R29.702 NIHSS score 2; Z82.49 Family history of ischemic heart disease and other diseases of the circulatory system; Z86.73 Personal history of transient ischemic attack (TIA), and cerebral infarction without residual deficits; K21.9 Gastro-esophageal reflux disease without esophagitis; Z88.0 Allergy status to penicillin; Z88.2 Allergy status to sulfonamides; Z71.6 Tobacco abuse counseling; E78.5 Hyperlipidemia, unspecified
CPT/HCPCS: 36415; 70450; 70496; 70498; 70551; 71045; 80048; 80061; 82962; 85027; 85610; 85730; 93005; 93306; Q9967; G0378

== ENCOUNTER 2019-05-02 08:29 | Emergency (ER) | payer BC, MEDICARE ==
[~2019-05-02] VITALS: Ht 160 cm; Wt 55.0 kg
[~2019-05-02 08:29] MED LIST: ASPI-612 PO; ATOR40TA59 PO
--- NOTE | 2019-05-02 09:23 | PHYS DOC ---
Past Medical History Past Medical History: GERD Past Surgical History: No Surgical History Smoking Status: Former Smoker Additional Information: QUIT ON Friday04/26/19 Alcohol Use: Occasionally Adult General Chief Complaint Chief Complaint: FACE PROBLEM HPI HPI Patient is a 68 year old female who presents with stroke-like symptoms. Patient states that yesterday she started having numbness and tingling down her left arm and felt like something was wrapped around her upper arm on the left side. She states that she was recently admitted for a stroke rule out on April 26. At that time she had symptoms in her leg that then resolved. The patient states that she then woke up this morning and was having pins and needles and tingling in the left side of her face. The patient also states she is feeling off balance this morning. The balance issues then resolved. The patient does take a 81 mg aspirin daily. She also takes medicine for hypertension, and dyslipidemia. Denies any pain at this time. Review of Systems Review of Systems Constitutional: Denies fever or chills [] Eyes: Denies change in visual acuity, redness, or eye pain [] HENT: Denies nasal congestion or sore throat [] Respiratory: Denies cough or shortness of breath [] Cardiovascular: No additional information not addressed in HPI [] GI: Denies abdominal pain, nausea, vomiting, bloody stools or diarrhea [] : Denies dysuria or hematuria [] Musculoskeletal: Denies back pain or joint pain [] Integument: Denies rash or skin lesions [] Neurologic: Denies headache, but reports focal weakness that resolved and sensory changes [] Complete systems were reviewed and found to be within normal limits, except as documented in this note. Current Medications Current Medications Current Medications Medications (Trade) Dose Ordered Sig/[facility] Start Time Stop Time Status Last Admin Dose Admin Aspirin (Children'S Aspirin) 243 mg 1X STAT 05/02/19 09:39 05/02/19 09:40 DC Allergies Allergies Allergies Coded Allergies Type Severity Reaction Last Updated Verified Sulfa (Sulfonamide Antibiotics) Allergy Severe 04/26/19 Yes Penicillins Allergy Intermediate 04/26/19 Yes Physical Exam Physical Exam Constitutional: Well developed, well nourished, no acute distress, non-toxic appearance. [] HENT: Normocephalic, atraumatic, bilateral external ears normal, oropharynx moist, no oral exudates, nose normal. [] Eyes: PERRLA, EOMI, conjunctiva normal, no discharge. [] Neck: Normal range of motion, no tenderness, supple, no stridor. [] Cardiovascular:Heart rate regular rhythm, no murmur [] Lungs & Thorax: Bilateral breath sounds clear to auscultation [] Abdomen: Bowel sounds normal, soft, no tenderness, no masses, no pulsatile masses. [] Skin: Warm, dry, no erythema, no rash. [] Back: No tenderness, no CVA tenderness. [] Extremities: No tenderness, no cyanosis, no clubbing, ROM intact, no edema. [] Neurologic: Alert and oriented X 3, normal motor function, normal sensory function, no focal deficits noted. [] Psychologic: Affect normal, judgement normal, mood normal. [] Current Patient Data Vital Signs Vital Signs Date Time Temp Pulse Resp B/P (MAP) Pulse Ox O2 Delivery O2 Flow Rate FiO2 05/02/19 09:00 97.7 102 18 156/88 (110) 97 Room Air 97.7 Lab Values Laboratory Tests Test 05/02/19 10:18 05/02/19 10:25 White Blood Count 9.7 x10^3/uL (4.0-11.0) Red Blood Count 5.18 x10^6/uL (3.50-5.40) Hemoglobin 15.0 g/dL (12.0-15.5) Hematocrit 44.4 % (36.0-47.0) Mean Corpuscular Volume 86 fL (79-100) Mean Corpuscular Hemoglobin 29 pg (25-35) Mean Corpuscular Hemoglobin Concent 34 g/dL (31-37) Red Cell Distribution Width 13.7 % (11.5-14.5) Platelet Count 358 x10^3/uL (140-400) Neutrophils (%) (Auto) 73 % (31-73) Lymphocytes (%) (Auto) 20 % (24-48) L Monocytes (%) (Auto) 6 % (0-9) Eosinophils (%) (Auto) 0 % (0-3) Basophils (%) (Auto) 1 % (0-3) Neutrophils # (Auto) 7.1 x10^3/uL (1.8-7.7) Lymphocytes # (Auto) 1.9 x10^3/uL (1.0-4.8) Monocytes # (Auto) 0.6 x10^3/uL (0.0-1.1) Eosinophils # (Auto) 0.0 x10^3/uL (0.0-0.7) Basophils # (Auto) 0.1 x10^3/uL (0.0-0.2) Erythrocyte Sedimentation Rate 4 (0-25) Prothrombin Time 12.7 SEC (11.7-14.0) Prothrombin Time INR 1.0 (0.8-1.1) Activated Partial Thromboplast Time 27 SEC (24-38) Sodium Level 139 mmol/L (136-145) Potassium Level 3.9 mmol/L (3.5-5.1) Chloride Level 103 mmol/L (98-107) Carbon Dioxide Level 26 mmol/L (21-32) Anion Gap 10 (6-14) Blood Urea Nitrogen 14 mg/dL (7-20) Creatinine 1.0 mg/dL (0.6-1.0) Estimated GFR (Cockcroft-Gault) 55.5 BUN/Creatinine Ratio 14 (6-20) Glucose Level 107 mg/dL (70-99) H Calcium Level 9.7 mg/dL (8.5-10.1) Magnesium Level 1.8 mg/dL (1.8-2.4) Total Bilirubin 0.3 mg/dL (0.2-1.0) Aspartate Amino Transferase (AST) 14 U/L (15-37) L Alanine Aminotransferase (ALT) 18 U/L (14-59) Alkaline Phosphatase 79 U/L (46-116) Troponin I Quantitative < 0.017 ng/mL (0.000-0.055) Total Protein 7.2 g/dL (6.4-8.2) Albumin 3.8 g/dL (3.4-5.0) Albumin/Globulin Ratio 1.1 (1.0-1.7) Urine Collection Type Void Urine Color Yellow Urine Clarity Clear Urine pH 7.0 Urine Specific [place] <=1.005 Urine Protein Negative mg/dL (NEG-TRACE) Urine Glucose (UA) Negative mg/dL (NEG) Urine Ketones (Stick) Negative mg/dL (NEG) Urine Blood Negative (NEG) Urine Nitrite Negative (NEG) Urine Bilirubin Negative (NEG) Urine Urobilinogen Dipstick 0.2 mg/dL (0.2 mg/dL) Urine Leukocyte Esterase Negative (NEG) Urine RBC Rare /HPF (0-2) Urine WBC Occ /HPF (0-4) Urine Squamous Epithelial Cells Few /LPF Urine Bacteria Few /HPF (0-FEW) Laboratory Tests 05/02/19 10:18 Laboratory Tests 05/02/19 10:18 EKG EKG [] Radiology/Procedures Radiology/Procedures [][facility] [address] [place] [address] IMAGING REPORT Signed PATIENT: CAITLIN RAMIREZ ACCOUNT: [id number] : 1950 LOCATION: ER AGE: 68 SEX: F EXAM STATUS: REG ER ORD. PHYSICIAN: ENRIQUETA HANNA APRN REASON: neuro changes LEFT ARM NUMBNESS TODAY. PROCEDURE: CT HEAD WO CONTRAST Exam performed: CT scan of the head without contrast. Date of Service: 05/02/2019. Comparison: None available. Clinical History: Left arm numbness today. Technique: Helical acquisitions are obtained from the foramen magnum to the vertex without intravenous administration of contrast. Findings: The ventricles are midline without evidence of dilatation. Normal mitchell-white differentiation is maintained. Mild atrophy is noted. There is no extra axial fluid collection, intraparenchymal hemorrhage or mass lesion. The visualized portions of the orbits, paranasal sinuses and the mastoid air cells appear clear. The calvarium is intact. Impression: 1. No acute intracranial process detected. 2. Mild atrophy is noted. RS Compliance Statement: One or more of the following individualized dose reduction techniques were utilized for this examination: 1. Automated exposure control 2. Adjustment of the mA and/or kV according to patient size 3. Use of iterative reconstruction technique Electronically signed by: Melody Rosales MD (05/02/2019 9:49 AM) [facility] DICTATED and SIGNED BY: MELODY ROSALES MD DATE: 05/02/19 0949 Course & Med Decision Making Course & Med Decision Making Pertinent Labs and Imaging studies reviewed. (See chart for details) Will get CT of Head, Labs, and give aspirin. CT of head, and labs are unremarkable for acute changes. Patient was recently ad mitted to hospital and had an MRI done that did not show an acute stroke. Discussed case with Dr. Saleh, hospitalist who saw the patient during the first admission to hospital. Dr. Saleh does not think a hospital admission would be beneficial at this time due to workup being completed on Friday and patient has already been placed on Aspirin. Will d/c patient home to follow up with Dr. Dave in clinic. Dragon Disclaimer Dragon Disclaimer This electronic medical record was generated, in whole or in part, using a voice recognition dictation system. Departure Departure Impression: Primary Impression: Numbness and tingling of left side of face Disposition: HOME, SELF-CARE Condition: STABLE Referrals: FABIEN PRADO MD (PCP) MYRNA DAVE MD Additional Instructions: Thank you for visiting [facility] We appreciate you trusting us with your care. If any additional problems come up don't hesitate to return to visit us. Please follow up with your primary care provider so they can plan additional care if needed and know about the problem that you had. If symptoms worsen come back to the Emergency Department. Any concerning symptoms that start such as chest pain, shortness of air, weakness or numbness on one side of the body, running high fevers or any other concerning symptoms return to the ER. NIHSS Stroke Scale NIH Stroke Scale: NIH Stroke Scale Response (Comments) Value Level of Consciousness: 0 Alert/Responsive 0 LOC Questions: 0 Answers both correctly 0 LOC Commands: 0 Performs both tasks 0 Best Gaze: 0 Normal 0 Visual: 0 No visual loss 0 Facial Palsy: 0 Normal, symmetrical 0 Motor - Left Arm 0 No drift 0 Motor - Right Arm 0 No drift 0 Motor - Left Leg 0 No drift 0 Motor: Right Leg 0 No drift 0 Limb Ataxia: 0 Absent 0 Sensory: 1 Mid to moderate loss 1 Best Language: 0 Normal 0 Dysathria: 0 Normal 0 Extinction and Inattention: 0 Normal 0 Total 1 ENRIQUETA HANNA APRN May 02, 2019 09:23
[2019-05-02] MEDS ORDERED: ASPIRIN CHEWABLE 81 MG TABLET. PO STA (09:39)
--- NOTE | 2019-05-02 09:52 | RAD ---
Exam performed: CT scan of the head without contrast. Date of Service: 05/02/2019. Comparison: None available. Clinical History: Left arm numbness today. Technique: Helical acquisitions are obtained from the foramen magnum to the vertex without intravenous administration of contrast. Findings: The ventricles are midline without evidence of dilatation. Normal mitchell-white differentiation is maintained. Mild atrophy is noted. There is no extra axial fluid collection, intraparenchymal hemorrhage or mass lesion. The visualized portions of the orbits, paranasal sinuses and the mastoid air cells appear clear. The calvarium is intact. Impression: 1. No acute intracranial process detected. 2. Mild atrophy is noted. PQRS Compliance Statement: One or more of the following individualized dose reduction techniques were utilized for this examination: 1. Automated exposure control 2. Adjustment of the mA and/or kV according to patient size 3. Use of iterative reconstruction technique Electronically signed by: Melody Rosales MD (05/02/2019 9:49 AM) [facility]
[2019-05-02 10:30] LABS: BASO # 0.1 x10^3/uL (0.0-0.2); BASO % 1 % (0-3); EOS % 0 % (0-3); HEMATOCRIT 44.4 % (36.0-47.0); LYMPH # 1.9 x10^3/uL (1.0-4.8); LYMPH % 20 % (24-48); MEAN CORPUSCULAR HEMOGLOBIN 29 pg (25-35); MEAN CORPUSCULAR HGB CONC 34 g/dL (31-37); MEAN CORPUSCULAR VOLUME 86 fL (79-100); MONO # 0.6 x10^3/uL (0.0-1.1); MONO % 6 % (0-9); NEUT # 7.1 x10^3/uL (1.8-7.7); NEUT % 73 % (31-73); PLATELET COUNT 358 x10^3/uL (140-400); RED BLOOD COUNT 5.18 x10^6/uL (3.50-5.40); RED CELL DISTRIBUTION WIDTH 13.7 % (11.5-14.5); WHITE BLOOD COUNT 9.7 x10^3/uL (4.0-11.0)
[2019-05-02 10:33] LABS: BILIRUBIN,URINE NEGATIVE (NEG); CLARITY,URINE CLEAR; COLOR,URINE YELLOW; NITRITE,URINE NEGATIVE (NEG); PROTEIN,URINE NEGATIVE (NEG-TRACE); UROBILINOGEN,URINE 0.2 mg/dL (0.2 mg/dL)
[2019-05-02 10:39] LABS: PROTHROMBIN TIME PATIENT 12.7 SEC (11.7-14.0)
[2019-05-02 10:41] LABS: CALCIUM 9.7 mg/dL (8.5-10.1); GFR 55.5; POTASSIUM 3.9 mmol/L (3.5-5.1)
[2019-05-02 10:42] LABS: SQUAMOUS EPITHELIAL CELL,UR FEW /LPF
[2019-05-02 10:43] LABS: BACTERIA,URINE FEW /HPF (0-FEW); RBC,URINE RARE /HPF (0-2); WBC,URINE OCC /HPF (0-4)
[2019-05-02 10:46] LABS: ALBUMIN 3.8 g/dL (3.4-5.0); ALBUMIN/GLOBULIN RATIO 1.1 (1.0-1.7); MAGNESIUM 1.8 mg/dL (1.8-2.4); TOTAL BILIRUBIN 0.3 mg/dL (0.2-1.0); TOTAL PROTEIN 7.2 g/dL (6.4-8.2)
[2019-05-02 12:23] VITALS: BP 180/81
--- NOTE | 2019-05-03 09:03 | EKG ---
[facility] [address] [place] [address] Test Date: 2019-05-02 Test Time: 10:10:39 Pat Name: CAITLIN RAMIREZ Department: Room: Gender: F [employer]: : 1950 Requested By: ENRIQUETA HANNA Order Number: [id number] Reading MD: Measurements Intervals [place] Rate: 62 P: 41 RI: 176 QRS: -35 QRSD: 80 T: 62 QT: 388 QTc: 396 Interpretive Statements SINUS RHYTHM ABNORMAL LEFT AXIS DEVIATION LEFT ANTERIOR FASCICULAR BLOCK ABNORMAL ECG RI6.01 No previous ECG available for comparison
== END 2019-05-02 12:29 | disposition home or self-care (01) ==
LOC: ER 08:29
DX: R20.0 Anesthesia of skin (principal); R20.2 Paresthesia of skin; R53.1 Weakness; K21.9 Gastro-esophageal reflux disease without esophagitis; F17.200 Nicotine dependence, unspecified, uncomplicated; Z88.0 Allergy status to penicillin; Z88.2 Allergy status to sulfonamides
CPT/HCPCS: 36415; 70450; 80053; 81001; 83735; 84484; 85025; 85610; 85651; 85730; 93005; 99285